=== PATIENT | female | born 1960 | race Caucasian/White ===

== ENCOUNTER → 2016-12-24 | Outpatient (CLI) | payer OTHER ==
[~2016-12-24] MED LIST: AMBIEN 5MG TABLE5 MG PO; AUGMENTIN XR 101 TER PO; BIOTENE DE; BIOTIN1 MG PO; CARAFATE 1GM1 G PO; CELEBREX50 MG PO; CITRACAL LIQUI500 MG PO; EXCEDRIN1 TAB PO; LIORESAL 1010 MG/TAB PO; LISINOPRIL20 MG PO; LOPERAMIDE2 MG PO; MULTIPLE VITAMI1 CAP PO; NORCO 325 MG-51 TAB PO; PEPTO BISM262 MG/15 PO; PERCOCET 325 MG1 TA2 PO; PRIL40 PO; PROBIOTIC FORMU1 CAP PO; QUESTRAN1 GM PO; TYLENOL 500MG500 MG PO; ULTRAM 50MG TAB50 MG PO; ULTRAM100 MG PO; ZESTRIL 20MG TA20 MG PO
== END ==
LOC: COL.RAD 12:41
DX: R10.13 Epigastric pain (principal)

== ENCOUNTER → 2017-03-06 | Outpatient (CLI) | payer OTHER | LOC: COL.LAB 16:41 | DX: R19.7 Diarrhea, unspecified (principal) ==

== ENCOUNTER → 2017-05-22 | Outpatient (CLI) | payer OTHER | LOC: MC.RAD 16:18 | DX: Z12.31 Encounter for screening mammogram for malignant neoplasm of breast (principal); N60.12 Diffuse cystic mastopathy of left breast; N60.11 Diffuse cystic mastopathy of right breast ==

== ENCOUNTER → 2018-10-15 | Outpatient (CLI) | payer BC | LOC: MC.RAD 07:51 | DX: Z12.31 Encounter for screening mammogram for malignant neoplasm of breast (principal) ==

== ENCOUNTER → 2019-11-02 | Outpatient (CLI) | payer BC | LOC: MC.RAD 12:58 | DX: Z12.31 Encounter for screening mammogram for malignant neoplasm of breast (principal); N63.10 Unspecified lump in the right breast, unspecified quadrant; N63.20 Unspecified lump in the left breast, unspecified quadrant ==

== ENCOUNTER → 2020-08-29 | Outpatient (CLI) | payer BC | LOC: COL.PUL 08-15 11:20 | DX: F17.210 Nicotine dependence, cigarettes, uncomplicated (principal) ==

== ENCOUNTER → 2020-12-04 | Outpatient (CLI) | payer BC | LOC: MC.RAD 10:08 | DX: Z12.31 Encounter for screening mammogram for malignant neoplasm of breast (principal) ==

== ENCOUNTER → 2021-01-24 | Outpatient (CLI) | payer BC | LOC: MHCPAIN 08:43 | DX: M47.817 Spondylosis without myelopathy or radiculopathy, lumbosacral region (principal); M54.5 Low back pain; M53.3 Sacrococcygeal disorders, not elsewhere classified; G89.29 Other chronic pain | CPT/HCPCS: G0463 ==

== ENCOUNTER → 2021-01-29 | Outpatient (CLI) | payer BC | LOC: MHCPAIN 09:34 | DX: M47.817 Spondylosis without myelopathy or radiculopathy, lumbosacral region (principal); M54.5 Low back pain; M53.3 Sacrococcygeal disorders, not elsewhere classified; G89.29 Other chronic pain | CPT/HCPCS: J1040; Q9967 ==

== ENCOUNTER → 2021-02-12 | Outpatient (CLI) | payer BC | LOC: MHCPAIN 09:45 | DX: M47.817 Spondylosis without myelopathy or radiculopathy, lumbosacral region (principal); M53.3 Sacrococcygeal disorders, not elsewhere classified; M54.5 Low back pain; G89.29 Other chronic pain | CPT/HCPCS: G0463 ==

== ENCOUNTER → 2021-02-15 | Outpatient (CLI) | payer BC | LOC: MHCPAIN 09:44 | DX: M47.818 Spondylosis without myelopathy or radiculopathy, sacral and sacrococcygeal region (principal); M53.3 Sacrococcygeal disorders, not elsewhere classified | CPT/HCPCS: G0260; J1040; Q9967 ==

== ENCOUNTER → 2021-03-20 | Outpatient (CLI) | payer BC | LOC: MHCPAIN 08:02 | DX: M47.817 Spondylosis without myelopathy or radiculopathy, lumbosacral region (principal); M53.3 Sacrococcygeal disorders, not elsewhere classified; M54.5 Low back pain; G89.29 Other chronic pain | CPT/HCPCS: G0463 ==

== ENCOUNTER → 2021-06-27 | Outpatient (CLI) | payer BC | LOC: MHCPAIN 08:35 | DX: M47.817 Spondylosis without myelopathy or radiculopathy, lumbosacral region (principal); M54.5 Low back pain; M53.3 Sacrococcygeal disorders, not elsewhere classified | CPT/HCPCS: G0463 ==

== ENCOUNTER → 2021-06-28 | Outpatient (CLI) | payer BC | LOC: MHCPAIN 10:29 | DX: M47.817 Spondylosis without myelopathy or radiculopathy, lumbosacral region (principal); M54.5 Low back pain; M53.3 Sacrococcygeal disorders, not elsewhere classified ==

== ENCOUNTER → 2021-07-02 | Outpatient (CLI) | payer BC | LOC: MHCPAIN 10:32 | DX: M47.817 Spondylosis without myelopathy or radiculopathy, lumbosacral region (principal); M53.3 Sacrococcygeal disorders, not elsewhere classified; M54.5 Low back pain | CPT/HCPCS: G0463 ==

== ENCOUNTER → 2021-07-05 | Outpatient (CLI) | payer BC | LOC: MHCPAIN 10:26 | DX: M47.817 Spondylosis without myelopathy or radiculopathy, lumbosacral region (principal); M53.3 Sacrococcygeal disorders, not elsewhere classified; M99.04 Segmental and somatic dysfunction of sacral region ==

== ENCOUNTER → 2021-07-09 | Outpatient (CLI) | payer BC | LOC: MHCPAIN 09:50 | DX: M47.817 Spondylosis without myelopathy or radiculopathy, lumbosacral region (principal); M53.3 Sacrococcygeal disorders, not elsewhere classified; M99.04 Segmental and somatic dysfunction of sacral region; M54.50 Low back pain, unspecified | CPT/HCPCS: G0463 ==

== ENCOUNTER → 2021-08-06 | Outpatient (CLI) | payer BC | LOC: MHCPAIN 07-16 14:15 | DX: M47.817 Spondylosis without myelopathy or radiculopathy, lumbosacral region (principal); M53.3 Sacrococcygeal disorders, not elsewhere classified; M54.50 Low back pain, unspecified ==

== ENCOUNTER → 2021-08-14 | Outpatient (CLI) | payer BC | LOC: MHCPAIN 14:07 | DX: M47.817 Spondylosis without myelopathy or radiculopathy, lumbosacral region (principal); M54.50 Low back pain, unspecified; M53.3 Sacrococcygeal disorders, not elsewhere classified | CPT/HCPCS: G0463 ==

== ENCOUNTER → 2021-09-13 | Outpatient (CLI) | payer BC | LOC: MHCPAIN 11:42 | DX: M47.817 Spondylosis without myelopathy or radiculopathy, lumbosacral region (principal); M54.50 Low back pain, unspecified; M53.3 Sacrococcygeal disorders, not elsewhere classified | CPT/HCPCS: J1100; J2250; J3010 ==

== ENCOUNTER → 2021-11-12 | Outpatient (CLI) | payer BC | LOC: MHCPAIN 11:03 | DX: M47.817 Spondylosis without myelopathy or radiculopathy, lumbosacral region (principal); M53.3 Sacrococcygeal disorders, not elsewhere classified; M54.50 Low back pain, unspecified | CPT/HCPCS: G0463 ==

== ENCOUNTER → 2022-01-16 | Outpatient (CLI) | payer BC | LOC: MC.RAD 08:06 | DX: Z12.31 Encounter for screening mammogram for malignant neoplasm of breast (principal) ==

== ENCOUNTER → 2022-10-30 | Outpatient (CLI) | payer BC | LOC: COL.LAB 13:03 | DX: M79.89 Other specified soft tissue disorders (principal) ==

== ENCOUNTER → 2022-12-10 | Outpatient (CLI) | payer BC | LOC: COL.RAD 14:28 | DX: Z12.2 Encounter for screening for malignant neoplasm of respiratory organs (principal); J84.10 Pulmonary fibrosis, unspecified; I25.10 Atherosclerotic heart disease of native coronary artery without angina pectoris; R91.1 Solitary pulmonary nodule; Z87.891 Personal history of nicotine dependence; Z90.49 Acquired absence of other specified parts of digestive tract ==

== ENCOUNTER → 2023-02-13 | Outpatient (CLI) | payer BC | LOC: MC.RAD 08:58 | DX: Z12.31 Encounter for screening mammogram for malignant neoplasm of breast (principal); M85.851 Other specified disorders of bone density and structure, right thigh; M85.852 Other specified disorders of bone density and structure, left thigh ==

== ENCOUNTER → 2024-01-15 | Outpatient (CLI) | payer BC | LOC: MC.RAD 09:15 | DX: Z12.31 Encounter for screening mammogram for malignant neoplasm of breast (principal) ==